=== PATIENT | male | born 1975 | race American Indian/Alaskan Native ===

== ENCOUNTER 2019-08-20 23:14 | Inpatient (IN) | payer OTHER ==
[2019-08-20] MEDS ORDERED: methylPREDNISolone Sod Succinate 125 MG/2 ML INJ IV ONE (23:44)
[2019-08-20] MEDS ORDERED: ALBUTEROL 2.5 MG/3 ML NEBU IH ONE (23:44)
[2019-08-20] MEDS ORDERED: IPRATROPIUM 0.02% NEBU 2.5 ML IH ONE (23:44)
--- NOTE | 2019-08-21 00:20 | Emergency Department Report ---
ED Asthma HPI - General Chief Complaint: Adult Asthma Stated Complaint: ASTHMA Time Seen by Provider: 08/20/19 23:40 Source: patient Mode of arrival: Ambulatory Limitations: No Limitations - History of Present Illness Initial Comments: 43-year-old male with a past medical history asthma and hypertension presents to the hospital complains of wheezing and short of breath for the last 10 days. No improvement with home nebs. Patient has history to intubations to intubations in the past with last intubation in May. Patient to dry cough without fever. Generalized chest tightness reported that is moderate in intensity. No calf tenderness or leg edema. Patient's compliant with his amlodipine 10 mg every morning for hypertension. Patient received albuterol 5 mg prior to arrival with minimal improvement. Not currently on steroids. PMD none, neurologist: None - Related Data Allergies Allergy/AdvReac Type Severity Reaction Status Date / Time shellfish derived Allergy Swelling Verified 08/20/19 23:16 ED Review of Systems ROS: Stated complaint: ASTHMA Other details as noted in HPI Comment: All other systems reviewed and negative ED Past Medical Hx - Past Medical History Previous Medical History?: Yes Hx Hypertension: Yes Hx Asthma: Yes - Surgical History Past Surgical History?: Yes Additional Surgical History: sinus ED Physical Exam - General Limitations: No Limitations - Other Other exam information: General: No acute distress Head: Atraumatic Eyes: normal appearance ENT: Moist mucous membranes Neck: Normal appearance, no midline tenderness Chest: Poor air movement, mild tachypnea CV: Regular rate and rhythm Abdomen: Soft, normal bowel sounds, nontender, nondistended, no rebound or guarding Back: Normal inspection Extremity: Normal inspection infection, full range of motion, no calf tenderness or leg edema Neuro: Alert O x 3, no facial asymmetry, speech clear, no gross motor sensory deficit Psych: Appropriate behavior Skin: Eczema rash to chest ED Course Vital Signs 08/20/19 08/20/19 08/20/19 23:19 23:34 23:45 Temperature 97.7 F Pulse Rate 76 84 Pulse Rate [ Bilateral] Respiratory 18 19 11 L Rate Respiratory Rate [Bilateral ] Blood Pressure 163/101 158/104 O2 Sat by Pulse 97 99 Oximetry 08/20/19 08/21/19 08/21/19 23:59 00:01 00:15 Temperature Pulse Rate 73 84 Pulse Rate [ 73 Bilateral] Respiratory 13 18 Rate Respiratory 15 Rate [Bilateral ] Blood Pressure 158/104 157/91 O2 Sat by Pulse 100 100 Oximetry 08/21/19 08/21/19 08/21/19 00:31 00:45 01:01 Temperature Pulse Rate 87 90 79 Pulse Rate [ Bilateral] Respiratory 18 17 14 Rate Respiratory Rate [Bilateral ] Blood Pressure 157/91 137/101 137/101 O2 Sat by Pulse 100 100 100 Oximetry 08/21/19 08/21/19 08/21/19 01:15 01:30 01:45 Temperature Pulse Rate 83 81 86 Pulse Rate [ Bilateral] Respiratory 15 16 16 Rate Respiratory Rate [Bilateral ] Blood Pressure 129/76 129/76 O2 Sat by Pulse 100 100 100 Oximetry 08/21/19 08/21/19 08/21/19 02:01 02:15 02:31 Temperature Pulse Rate 82 99 H 88 Pulse Rate [ Bilateral] Respiratory 15 15 16 Rate Respiratory Rate [Bilateral ] Blood Pressure 142/77 132/76 132/76 O2 Sat by Pulse 100 100 100 Oximetry 08/21/19 08/21/19 08/21/19 02:45 03:01 03:15 Temperature Pulse Rate 74 70 92 H Pulse Rate [ Bilateral] Respiratory 15 14 15 Rate Respiratory Rate [Bilateral ] Blood Pressure 129/84 129/84 146/91 O2 Sat by Pulse 100 100 100 Oximetry 08/21/19 08/21/19 08/21/19 03:31 04:01 04:31 Temperature Pulse Rate 77 69 107 H Pulse Rate [ Bilateral] Respiratory 15 14 16 Rate Respiratory Rate [Bilateral ] Blood Pressure 146/91 134/83 125/76 O2 Sat by Pulse 100 100 100 Oximetry ED Medical Decision Making - Lab Data Result diagrams: 08/20/19 23:50 08/20/19 23:50 Lab Results 08/20/19 08/20/19 Range/Units 23:50 23:50 WBC 7.8 (4.5-11.0) K/mm3 RBC 4.52 (3.65-5.03) M/mm3 Hgb 13.9 (11.8-15.2) gm/dl Hct 41.0 (35.5-45.6) % MCV 91 (84-94) fl MCH 31 (28-32) pg MCHC 34 (32-34) % RDW 14.5 (13.2-15.2) % Plt Count 336 (140-440) K/mm3 Lymph % (Auto) 44.4 H (13.4-35.0) % [place] % (Auto) 7.7 H (0.0-7.3) % Eos % (Auto) 10.3 H (0.0-4.3) % Baso % (Auto) 0.4 (0.0-1.8) % Lymph # 3.5 (1.2-5.4) K/mm3 [place] # 0.6 (0.0-0.8) K/mm3 Eos # 0.8 H (0.0-0.4) K/mm3 Baso # 0.0 (0.0-0.1) K/mm3 Seg Neutrophils % 37.2 L (40.0-70.0) % Seg Neutrophils # 2.9 (1.8-7.7) K/mm3 Sodium 143 (137-145) mmol/L Potassium 3.1 L (3.6-5.0) mmol/L Chloride 104.3 (98-107) mmol/L Carbon Dioxide 20 L (22-30) mmol/L Anion Gap 22 mmol/L BUN 11 (9-20) mg/dL Creatinine 0.8 (0.8-1.5) mg/dL Estimated GFR > 60 ml/min BUN/Creatinine Ratio 14 % Glucose 99 (75-100) mg/dL Calcium 8.9 (8.4-10.2) mg/dL - EKG Data -: EKG Interpreted by [facility] EKG shows normal: sinus rhythm, ST-T waves (no stemi) Rate: normal (81) - Radiology Data Radiology results: report reviewed CHEST 1 VIEW INDICATION: sob, asthma. COMPARISON: None. FINDINGS: Support devices: None. Heart: Within normal limits. Lungs/Pleura: No acute air space or interstitial disease. Additional findings: None. IMPRESSION: No acute abnormality. - Medical Decision Making Pt presents with status asthmaticus without significant improvement despite nebs, steroids, and magnesium. Potassium provided for mild hypokalemia. Chest x-ray unremarkable. Patient to be admitted to the hospitalist service for evaluation. - Differential Diagnosis asthma, bronchitis, pneumonia, pneumothorax Critical Care Time: No Critical care attestation.: If time is entered above; I have spent that time in minutes in the direct care of this critically ill patient, excluding procedure time. ED Disposition Clinical Impression: Status asthmaticus, Hypokalemia Disposition: OP ADMIT IP TO THIS HOSP Is pt being admited?: Yes Condition: Stable Time of Disposition: 05:06 (Dr Ball/hosp)
[2019-08-21 00:24] LABS: Basophils % (Auto) 0.4 % (0.0-1.8); Eosinophils # (Auto) 0.8 K/mm3 (0.0-0.4); Eosinophils % (Auto) 10.3 % (0.0-4.3); Hemoglobin 13.9 gm/dl (11.8-15.2); Lymphocytes # (Auto) 3.5 K/mm3 (1.2-5.4); Lymphocytes % (Auto) 44.4 % (13.4-35.0); Mean Corpuscular HGB Conc 34 % (32-34); Mean Corpuscular Volume 91 fl (84-94); Monocytes # (Auto) 0.6 K/mm3 (0.0-0.8); Monocytes % (Auto) 7.7 % (0.0-7.3); Platelet Count 336 K/mm3 (140-440); Red Blood Count 4.52 M/mm3 (3.65-5.03); Red Cell Distribution Width 14.5 % (13.2-15.2)
--- NOTE | 2019-08-21 00:27 | XRay Report ---
CHEST 1 VIEW INDICATION: sob, asthma. COMPARISON: None. FINDINGS: Support devices: None. Heart: Within normal limits. Lungs/Pleura: No acute air space or interstitial disease. Additional findings: None. IMPRESSION: No acute abnormality. Signer Name: Terrance Treadwell MD Signed: 08/21/2019 12:23 AM Workstation Name: [id number]
[2019-08-21 00:43] LABS: BUN/Creatinine Ratio 14; Blood Urea Nitrogen 11 mg/dL (9-20); Calcium 8.9 mg/dL (8.4-10.2); Hemolysis Index 9
[2019-08-21] MEDS ORDERED: POTASSIUM CHLORIDE ER 20 MEQ TAB PO ONE (01:29)
[2019-08-21] MEDS ORDERED: ALBUTEROL 2.5 MG/3 ML NEBU IH ONE (03:10)
[2019-08-21] MEDS ORDERED: ONDANSETRON 4 MG/2 ML INJ IV PRN (05:49)
[2019-08-21] MEDS ORDERED: MAGNESIUM HYDROXIDE (MOM) ORAL LIQD UDC PO PRN (05:49)
--- NOTE | 2019-08-21 06:03 | History and Physical Report ---
History of Present Illness Date of examination: 08/21/19 Date of admission: 08/21/19 Chief complaint: Shortness of breath and cough History of present illness: 43-year-old -[place] male with known history of hypertension and asthma presented to the emergency room today complaining of cough and shortness of breath which has been ongoing for about 10 days. Cough has not been productive but he has been having some chest tightness. He denies any fever or chills. He denies any nausea or vomiting. He has used his inhalers at home without any significant improvement and indicates that he has been wheezing at home. He has known history of intubation in the past and last intubation was in May 2019. Upon arrival in the emergency room he was found to be wheezing and has received multiple nebulizer treatments with with some improvement. He indicates he has been compliant with his blood pressure medications. Past History Past Medical History: hypertension, other (Asthma) Past Surgical History: Other (History of previous intubations) Social history: alcohol abuse (Drinks 6 packs of beer per week) Family history: cancer (Brain cancer Sister, breast cancer in mother), hypertension, other (Family history of asthma) Medications and Allergies Allergies Allergy/AdvReac Type Severity Reaction Status Date / Time shellfish derived Allergy Swelling Verified 08/20/19 23:16 Home Medications Medication Instructions Recorded Confirmed Last Taken Type ALBUTEROL Inhaler (OR & NICU) 2 puff IH DAILY 08/21/19 08/21/19 Unknown History [ProAir HFA Inhaler] Budesonide/Formoterol Fumarate 2 puff IH DAILY 08/21/19 08/21/19 Unknown History [Symbicort 160-4.5 Mcg Inhaler] amLODIPine 1 tab PO DAILY 08/21/19 08/21/19 Unknown History Active Meds: Active Medications Acetaminophen (Tylenol) 650 mg PO Q4H PRN PRN Reason: Pain MILD(1-3)/Fever >100.5/MARRERO Albuterol/Ipratropium (Duoneb *Not For Prn Use*) 1 ampul IH Q6HRT DAVID Magnesium Hydroxide (Milk Of Magnesia) 30 ml PO Q4H PRN PRN Reason: Constipation Methylprednisolone Sodium Succinate (Solu-Medrol) 40 mg IV Q8HR DAVID Ondansetron HCl (Zofran) 4 mg IV Q8H PRN PRN Reason: Nausea And Vomiting Sodium Chloride (Sodium Chloride Flush Syringe 10 Ml) 10 ml IV BID DAVID Sodium Chloride (Sodium Chloride Flush Syringe 10 Ml) 10 ml IV PRN PRN PRN Reason: LINE FLUSH Review of Systems Respiratory: cough, shortness of breath Exam - Constitutional Vitals: Temp Pulse Resp BP Pulse Ox 97.7 F 107 H 16 125/76 100 08/20/19 23:19 08/21/19 04:31 08/21/19 04:31 08/21/19 04:31 08/21/19 04:31 General appearance: Present: no acute distress, well-nourished - EENT Eyes: Present: PERRL, EOM intact ENT: hearing intact, clear oral mucosa, dentition normal - Neck Neck: Present: supple, normal ROM - Respiratory Respiratory: bilateral: wheezing - Cardiovascular Rhythm: regular Heart Sounds: Present: S1 & S2 - Extremities Extremities: no ischemia, pulses intact, pulses symmetrical, No edema, Full ROM Peripheral Pulses: within normal limits - Abdominal General gastrointestinal: Present: soft, non-tender, non-distended, normal bowel sounds - Integumentary Integumentary: Present: clear, warm, dry, rash (Seborrheic dermatitis of the forehead and anterior chest wall) - Psychiatric Psychiatric: appropriate mood/affect, intact judgment & insight, cooperative - Neurologic Neurologic: CNII-XII intact, moves all extremities Results - Labs CBC & Chem 7: 08/20/19 23:50 08/20/19 23:50 Labs: Abnormal lab results 08/20/19 08/20/19 Range/Units 23:50 23:50 Lymph % (Auto) 44.4 H (13.4-35.0) % [place] % (Auto) 7.7 H (0.0-7.3) % Eos % (Auto) 10.3 H (0.0-4.3) % Eos # 0.8 H (0.0-0.4) K/mm3 Seg Neutrophils % 37.2 L (40.0-70.0) % Potassium 3.1 L (3.6-5.0) mmol/L Carbon Dioxide 20 L (22-30) mmol/L Assessment and Plan - Patient Problems (1) Status asthmaticus Current Visit: Yes Status: Acute Plan to address problem: He has been placed on nebulizing treatments and also on IV steroids. We will monitor oxygen saturation and keep O2 saturation greater or equal to 92%. (2) Hypokalemia Current Visit: Yes Status: Acute Plan to address problem: Potassium will be repleted and will monitor chemistry. (3) Hypertension Current Visit: Yes Status: Acute Plan to address problem: We will continue routine home medication and monitor vital signs closely (4) DVT prophylaxis Current Visit: Yes Status: Acute Plan to address problem: Patient is placed on subcutaneous heparin. (5) Full code status Current Visit: Yes Status: Acute
[2019-08-21] MEDS: methylPREDNISolone Sod Succinate 40 MG/1 ML INJ IV SCH ×3 (06:20→22:38)
[2019-08-21] MEDS: IPRATROPIUM/ALBUTEROL SULFATE 3 ML AMPUL.NEB IH SCH ×3 (09:30→19:23)
[2019-08-21] MEDS: HEPARIN 5,000 UNIT/1 ML VIAL SUB-Q SCH ×2 (13:21→22:38)
[2019-08-21 13:33] LABS: BUN/Creatinine Ratio 15; Blood Urea Nitrogen 12 mg/dL (9-20); Calcium 9.8 mg/dL (8.4-10.2); Hemolysis Index 4
--- NOTE | 2019-08-21 13:56 | Event Note ---
Date: 08/21/19 Patient seen and examined admitted with acute asthma exacerbation, cont current mx and plan possible d/c in the am if clinically improves
[2019-08-21] MEDS ORDERED: NON-FORMULARY EACH (Budesonide/Formoterol Fumarate [Symbicort 160-4.5 Mcg Inhaler] 2 PUFF) IH SCH (18:30)
[2019-08-21] MEDS: amLODIPine 10 MG TAB PO SCH (18:36)
[2019-08-21] MEDS: ARFORMOTEROL 15 MCG/2 ML NEBU IH SCH (19:23)
[2019-08-21] MEDS: BUDESONIDE 0.5 MG/2 ML NEBU IH SCH (19:23)
[2019-08-21] MEDS ORDERED: ALBUTEROL 2.5 MG/3 ML NEBU IH PRN (19:30)
[2019-08-22] MEDS ORDERED: hydrALAZINE 20 MG/1 ML INJ IV PRN (00:06)
[2019-08-22] MEDS: IPRATROPIUM/ALBUTEROL SULFATE 3 ML AMPUL.NEB IH SCH ×4 (01:53→20:08)
[2019-08-22] MEDS: methylPREDNISolone Sod Succinate 40 MG/1 ML INJ IV SCH ×3 (06:34→21:12)
[2019-08-22] MEDS: HEPARIN 5,000 UNIT/1 ML VIAL SUB-Q SCH ×3 (06:34→21:12)
[2019-08-22] MEDS: ACETAMINOPHEN 325 MG TAB PO PRN ×3 (06:42→22:31)
[2019-08-22] MEDS: ARFORMOTEROL 15 MCG/2 ML NEBU IH SCH ×2 (07:23→20:08)
[2019-08-22] MEDS: BUDESONIDE 0.5 MG/2 ML NEBU IH SCH ×2 (07:23→20:08)
[2019-08-22] MEDS: amLODIPine 10 MG TAB PO SCH (09:05)
[2019-08-22 09:23] LABS: Basophils % (Auto) 0.1 % (0.0-1.8); Hematocrit 40.7 % (35.5-45.6); Hemoglobin 13.4 gm/dl (11.8-15.2); Lymphocytes # (Auto) 0.5 K/mm3 (1.2-5.4); Lymphocytes % (Auto) 6.5 % (13.4-35.0); Mean Corpuscular HGB Conc 33 % (32-34); Mean Corpuscular Volume 90 fl (84-94); Monocytes # (Auto) 0.4 K/mm3 (0.0-0.8); Monocytes % (Auto) 5.3 % (0.0-7.3); Platelet Count 313 K/mm3 (140-440); Red Blood Count 4.51 M/mm3 (3.65-5.03); Red Cell Distribution Width 14.3 % (13.2-15.2)
[2019-08-22 09:34] LABS: BUN/Creatinine Ratio 17; Blood Urea Nitrogen 10 mg/dL (9-20); Calcium 9.4 mg/dL (8.4-10.2); Hemolysis Index 3
[2019-08-22 09:38] LABS: INR 1.19 (0.87-1.13)
[2019-08-22] MEDS ORDERED: FLU VACC QUAD 2019-20 (3 YR UP)/PF 60 MCG/0.5 ML SYRINGE IM ONE (12:00)
--- NOTE | 2019-08-23 01:07 | Progress Note ---
Assessment and Plan / Status asthmaticus He has been placed on nebulizing treatments and also on IV steroids. We will monitor oxygen saturation and keep O2 saturation greater or equal to 92%. / Hypokalemia repleted and will monitor chemistry. / Hypertension continue routine home medication and monitor vital signs closely /DVT prophylaxis Patient is placed on subcutaneous heparin. /Full code status Disposition: likely tomorrow Subjective Date of service: 08/22/19 Interval history: Patient seen and examined Still c/o SOB, denies chest pain Objective - Constitutional Vitals: Vital Signs - 12hr 08/22/19 08/22/19 08/22/19 17:20 20:11 20:13 Temperature 98.0 F Pulse Rate 78 Pulse Rate [ 90 Anterior Bilateral Throughout] Respiratory 19 Rate Respiratory 20 Rate [Anterior Bilateral Throughout] Blood Pressure 148/95 O2 Sat by Pulse 99 99 Oximetry 08/22/19 08/22/19 08/22/19 21:22 22:31 22:46 Temperature 98.4 F 98.1 F Pulse Rate 90 68 Pulse Rate [ Anterior Bilateral Throughout] Respiratory 16 20 18 Rate Respiratory Rate [Anterior Bilateral Throughout] Blood Pressure 141/91 138/87 O2 Sat by Pulse 100 98 Oximetry 08/22/19 23:31 Temperature Pulse Rate Pulse Rate [ Anterior Bilateral Throughout] Respiratory 20 Rate Respiratory Rate [Anterior Bilateral Throughout] Blood Pressure O2 Sat by Pulse Oximetry General appearance: Present: mild distress - EENT Eyes: PERRL, EOM intact ENT: hearing intact, clear oral mucosa Ears: bilateral: normal - Neck Neck: supple, normal ROM - Respiratory Respiratory effort: normal Respiratory: bilateral: wheezing - Cardiovascular Rhythm: regular Heart Sounds: Present: S1 & S2. Absent: gallop, rub Extremities: pulses intact, No edema, normal color, Full ROM - Gastrointestinal General gastrointestinal: Present: soft, non-tender, non-distended, normal bowel sounds - Integumentary Integumentary: clear, warm, dry - Musculoskeletal Musculoskeletal: 1, strength equal bilaterally - Neurologic Neurologic: moves all extremities - Psychiatric Psychiatric: memory intact, appropriate mood/affect, intact judgment & insight - Labs CBC & Chem 7: 08/22/19 08:20 08/22/19 08:20 Labs: Abnormal lab results 08/22/19 08/22/19 08/22/19 Range/Units 08:20 08:20 08:20 Lymph % (Auto) 6.5 L (13.4-35.0) % Lymph # 0.5 L (1.2-5.4) K/mm3 Seg Neutrophils % 88.1 H (40.0-70.0) % PT 15.0 H (12.2-14.9) Sec. INR 1.19 H (0.87-1.13) Sodium 136 L (137-145) mmol/L Creatinine 0.6 L (0.8-1.5) mg/dL Glucose 125 H (75-100) mg/dL
[2019-08-23] MEDS: IPRATROPIUM/ALBUTEROL SULFATE 3 ML AMPUL.NEB IH SCH ×2 (02:15→07:44)
[2019-08-23] MEDS: ACETAMINOPHEN 325 MG TAB PO PRN ×2 (02:32→06:22)
[2019-08-23] MEDS: methylPREDNISolone Sod Succinate 40 MG/1 ML INJ IV SCH (06:09)
[2019-08-23] MEDS: HEPARIN 5,000 UNIT/1 ML VIAL SUB-Q SCH (06:09)
[2019-08-23] MEDS ORDERED: oxyCODONE /ACETAMINOPHEN 5-325MG TAB PO PRN (06:12)
[2019-08-23] MEDS: ARFORMOTEROL 15 MCG/2 ML NEBU IH SCH (07:45)
[2019-08-23] MEDS: BUDESONIDE 0.5 MG/2 ML NEBU IH SCH (07:45)
[2019-08-23] MEDS: amLODIPine 10 MG TAB PO SCH (09:09)
--- NOTE | 2019-08-23 12:03 | Discharge Summary ---
Providers - Providers Date of Admission: 08/21/19 05:14 Date of discharge: 08/23/19 Attending physician: BECKY SUTTON Primary care physician: INTEGR[employer]ELOPER Hospitalization Reason for admission: Status asthmaticus Condition: Stable Hospital course: Final discharge diagnosis: Status asthmaticus Hypokalemia Uncontrolled Hypertension Medication non-compliance Hospital course: Pt was admitted and placed on IV steroids, duonebs and 02 supplementations. He also received K supplements for hypokalemia with resolution. In addition, he was placed on anti-hypertensives for BP control. Subsequently, he improved clinically and was then deemed stable for d/c with clinic f/u. Disposition: DC-01 TO HOME OR SELFCARE Time spent for discharge: 38 minutes Core Measure Documentation - Palliative Care Palliative Care/ Comfort Measures: Not Applicable - Core Measures Any of the following diagnoses?: none Exam - Constitutional Vitals: Temp Pulse Resp BP Pulse Ox 98.1 F 84 20 129/86 98 08/23/19 05:54 08/23/19 07:45 08/23/19 07:45 08/23/19 05:54 08/23/19 07:47 General appearance: Present: no acute distress, well-nourished - EENT Eyes: Present: PERRL, EOM intact ENT: hearing intact, clear oral mucosa - Neck Neck: Present: supple, normal ROM - Respiratory Respiratory effort: normal Respiratory: bilateral: CTA - Cardiovascular Heart Sounds: Present: S1 & S2. Absent: rub, click - Extremities Extremities: pulses symmetrical, No edema Peripheral Pulses: within normal limits - Abdominal General gastrointestinal: Present: soft, non-tender, non-distended, normal bowel sounds - Integumentary Integumentary: Present: clear, warm, dry - Musculoskeletal Musculoskeletal: gait normal, strength equal bilaterally - Psychiatric Psychiatric: appropriate mood/affect, intact judgment & insight - Neurologic Neurologic: CNII-XII intact, moves all extremities Plan Follow up with: PRIMARY CARE, [Primary Care Provider] - 3-5 Days Forms: Work/School Release Form Prescriptions: amLODIPine 10 mg PO DAILY 30 Days #30 tab Prednisone [predniSONE (Trace) ER TAB] 5 mg PO QDAY #30 tablet. ALBUTEROL Inhaler (OR & NICU) [ProAir HFA Inhaler] 2 puff IH Q4H PRN #8.5 gram PRN Reason: Shortness Of Breath Budesonide/Formoterol Fumarate [Symbicort 160-4.5 Mcg Inhaler] 2 puff IH DAILY #1 hfa.aer.ad
[2019-08-23 12:55] VITALS: BP 144/82
== END 2019-08-23 13:24 | disposition home or self-care (01) | DRG 203 ==
LOC: EDBD → ED 23:14 → 3A 08-21 05:14
PROVIDERS: ADMIT Internal Medicine Geriatric Medicine; ATTEND Internal Medicine
DX: J45.902 Unspecified asthma with status asthmaticus (principal); E87.6 Hypokalemia; I10 Essential (primary) hypertension; F10.10 Alcohol abuse, uncomplicated; Y90.9 Presence of alcohol in blood, level not specified; Z91.013 Allergy to seafood; Z82.49 Family history of ischemic heart disease and other diseases of the circulatory system; Z80.8 Family history of malignant neoplasm of other organs or systems; Z79.51 Long term (current) use of inhaled steroids
CPT/HCPCS: 36415; 71045; 80048; 85025; 85610; 85730; 90686; 93005; 93010; 94640; 94644; 94760; 96374; G0378; J1644; J2920; J2930

== ENCOUNTER 2019-09-29 21:33 | Emergency (ER) | payer SELFPAY ==
--- NOTE | 2019-09-29 22:21 | Emergency Department Report ---
HPI - General Time Seen by Provider: 09/29/19 21:48 - HPI HPI: 44-year-old -[place] male presents to the emergency department with a complaint of right shoulder pain since last night. He was playing basketball and fell with an outstretched arm. He feels like his right shoulder dislocated and then popped back into place. Since that time the patient has been having increased pain at the right shoulder that radiates down the arm and he has decreased range of motion. He has trouble lifting his arm. He has not taken anything for her symptoms prior to presentation. He is right-hand dominant. The patient says that he had a visit to the emergency department about 3 months ago in which he had a right shoulder dislocation and fracture. He says he was supposed to have surgery but never did. ED Past Medical Hx - Past Medical History Previous Medical History?: Yes Hx Hypertension: Yes Hx Asthma: Yes Additional medical history: gastric ulcers - Surgical History Past Surgical History?: Yes Additional Surgical History: sinus, Jaw - Social History Smoking Status: Never Smoker Substance Use Type: Alcohol - Medications Home Medications: Home Medications Medication Instructions Recorded Confirmed Last Taken Type Budesonide/Formoterol Fumarate 2 puff IH DAILY #1 hfa.aer.ad 08/23/19 Unknown Rx [Symbicort 160-4.5 Mcg Inhaler] Prednisone [predniSONE (Trace) ER 5 mg PO QDAY #30 tablet. 08/23/19 Unknown Rx TAB] amLODIPine 10 mg PO DAILY 30 Days #30 tab 08/23/19 Unknown Rx ALBUTEROL Inhaler (OR & NICU) 2 puff IH Q4H PRN #8.5 gram 09/30/19 Unknown Rx [ProAir HFA Inhaler] HYDROcodone/APAP 5-325 [[place] 1 each PO Q6HR PRN #12 tablet 09/30/19 Unknown Rx 5/325] predniSONE [Deltasone] 20 mg PO BID #8 tab 09/30/19 Unknown Rx ED Review of Systems ROS: Stated complaint: SHOULDER PAIN Other details as noted in HPI Comment: All other systems reviewed and negative Constitutional: denies: chills, fever Musculoskeletal: arthralgia, myalgia. denies: joint swelling Neurological: denies: numbness, paresthesias Physical Exam - Physical Exam Vital Signs: Vital Signs 09/29/19 09/29/19 09/29/19 21:57 22:01 22:16 Pulse Rate 84 Respiratory 13 18 Rate Blood Pressure 174/118 O2 Sat by Pulse 97 97 Oximetry Physical Exam: GENERAL: The patient is well-developed well-nourished. HEENT: Normocephalic. Atraumatic. Patient has moist mucous membranes. EYES: Extraocular motions are intact. NECK: Supple. Trachea is midline CHEST/LUNGS: Mild to moderate wheezing throughout the chest. There is some tachypnea but no accessory muscle use. There is no respiratory distress noted. HEART/CARDIOVASCULAR: Regular. There is no tachycardia. ABDOMEN: Abdomen is soft, nontender. Patient has normal bowel sounds. There is no abdominal distention. SKIN: Skin is warm and dry. NEURO: The patient is awake, alert, and oriented. The patient is cooperative. The patient has no focal neurologic deficits. Normal speech. MUSCULOSKELETAL: There is tenderness to palpation to the right shoulder but no obvious deformity. Decreased range of motion of the right shoulder secondary to pain. Radial pulse +2 over 4 and capillary refill less than 2 seconds to the affected right upper extremity. ED Course Vital Signs 09/29/19 09/29/19 09/29/19 21:57 22:01 22:16 Pulse Rate 84 Respiratory 13 18 Rate Blood Pressure 174/118 O2 Sat by Pulse 97 97 Oximetry - Reevaluation(s) Reevaluation #1: 09/29/19 22:31 As I went back into the room to discuss the shoulder x-ray results, the patient appears to be having an asthma exacerbation. He has some tachypnea and wheezing. He does have a history of asthma and says that he has been using his albuterol inhaler excessively without any relief. He says that he has been to multiple hospitals over the past few weeks regarding his asthma. An IV will be placed. Patient will receive Solu-Medrol, magnesium, breathing treatments. ED Medical Decision Making - Lab Data Result diagrams: 09/29/19 23:45 09/29/19 23:45 - Radiology Data Radiology results: image reviewed interpreted by me: Chest x-ray does not show any pneumonia, pneumothorax, focal consolidation, pleural effusions, or any other acute process. X-ray of the right shoulder does not show any fracture, dislocation, or any acute process. - Medical Decision Making This patient originally presents with right shoulder pain with concern for possible fracture or dislocation. He definitely feels that it was dislocated last night but then reduced almost immediately afterwards. On examination he has tenderness to palpation to the right shoulder and decreased range of motion secondary to pain. He is neurovascularly intact. X-ray does not show any fracture, dislocation, or any other acute process. Patient began having what appears to be an asthma exacerbation. He had some mild to moderate wheezing but no accessory muscle use, conversational dyspnea, or signs of respiratory distress. He was given some Solu-Medrol, magnesium and a breathing treatment. Chest x-ray did not show any pleural effusions, pneu monia, or any other acute process. Upon reevaluation the patient is feeling greatly improved. Vital signs have been stable throughout his ED course except for he did have some hypertension. He was given a dose of hydralazine and his blood pressure came down to a more reasonable level. The patient be discharged home with a shoulder immobilizer, referrals for orthopedists, a 4 day course of steroids, refill of his albuterol inhaler, and pain medication. The patient will return to the ER with any worsening of his symptoms or any acute distress. - Differential Diagnosis shoulder fracture, shoulder dislocation, rotator cuff tear, asthma, pneumon Critical Care Time: No Critical care attestation.: If time is entered above; I have spent that time in minutes in the direct care of this critically ill patient, excluding procedure time. ED Disposition Clinical Impression: Asthma exacerbation Qualifiers: Asthma severity: unspecified severity Asthma persistence: unspecified Qualified Code(s): J45.901 - Unspecified asthma with (acute) exacerbation Right shoulder pain Qualifiers: Chronicity: acute Qualified Code(s): M25.511 - Pain in right shoulder Disposition: DC-01 TO HOME OR SELFCARE Is pt being admited?: No Condition: Stable Instructions: Asthma (ED), Arthralgia (ED) Additional Instructions: Please follow-up with your primary care physician regarding your asthma exacerbation. I have given you a referral for 2 local orthopedic groups, Dr. Bashir and Dave, regarding your right shoulder pain and injury. Return to the emergency Department with any worsening of your symptoms or any acute distress. The medication that you have been prescribed for pain can be sedating. Theref ore this medication cannot be taken prior to driving, working, being responsible for children, and cannot be mixed with alcohol of any quantity. Prescriptions: predniSONE [Deltasone] 20 mg PO BID #8 tab HYDROcodone/APAP 5-325 [[place] 5/325] 1 each PO Q6HR PRN #12 tablet PRN Reason: Pain ALBUTEROL Inhaler (OR & NICU) [ProAir HFA Inhaler] 2 puff IH Q4H PRN #8.5 gram PRN Reason: Shortness Of Breath Referrals: PRIMARY CAREMD [Primary Care Provider] - 2-3 Days MONIQUE BASHIR MD [Staff Physician] - 2-3 Days [facility] [Provider Group] - 2-3 Days Forms: Work/School Release Form(ED) Time of Disposition: 01:28
--- NOTE | 2019-09-29 22:25 | XRay Report ---
RIGHT SHOULDER 3 VIEWS INDICATION / CLINICAL INFORMATION: right shoulder pain COMPARISON: 12/07/2018 FINDINGS: BONES / JOINT(S): No acute fracture or subluxation. There is mild degenerative change of the glenohum eral joint. Small ossifications are noted adjacent to the humeral head which are consistent with well -corticated fracture fragments related to previous fracture/dislocation from 12/07/2018. SOFT TISSUES: No significant abnormality. ADDITIONAL FINDINGS: None. Signer Name: Efren Brewster MD Signed: 09/29/2019 10:20 PM Workstation Name: [id number]
[2019-09-29] MEDS ORDERED: ALBUTEROL 2.5 MG/3 ML NEBU IH ONE (22:30)
[2019-09-29] MEDS ORDERED: methylPREDNISolone Sod Succinate 125 MG/2 ML INJ IV ONE (22:30)
[2019-09-29] MEDS ORDERED: MAGNESIUM SULFATE 2 GM/50 ML BAG IV ONE (22:30)
[2019-09-29] MEDS ORDERED: SODIUM CHLORIDE 0.9% 1000 ML 1,000 ML IV ONE (22:30)
[2019-09-29] MEDS ORDERED: IPRATROPIUM 0.02% NEBU 2.5 ML IH ONE (22:31)
[2019-09-29] MEDS ORDERED: MORPHINE 4 MG/1 ML INJ IV ONE (23:44)
[2019-09-30 00:12] LABS: Basophils % (Auto) 0.7 % (0.0-1.8); Eosinophils # (Auto) 0.8 K/mm3 (0.0-0.4); Eosinophils % (Auto) 13.2 % (0.0-4.3); Hematocrit 37.9 % (35.5-45.6); Lymphocytes % (Auto) 31.9 % (13.4-35.0); Mean Corpuscular HGB Conc 34 % (32-34); Mean Corpuscular Volume 89 fl (84-94); Monocytes # (Auto) 0.4 K/mm3 (0.0-0.8); Platelet Count 284 K/mm3 (140-440); Red Blood Count 4.27 M/mm3 (3.65-5.03); Red Cell Distribution Width 14.5 % (13.2-15.2)
--- NOTE | 2019-09-30 00:18 | XRay Report ---
CHEST 1 VIEW INDICATION: SOB. COMPARISON: FINDINGS: SUPPORT DEVICES: None. HEART / MEDIASTINUM: No significant abnormality. LUNGS / PLEURA: No significant pulmonary or pleural abnormality. No pneumothorax. ADDITIONAL FINDINGS: IMPRESSION: 1. No acute findings. Signer Name: Aly Dalton MD Signed: 09/30/2019 12:14 AM Workstation Name: [id number]
[2019-09-30 00:50] LABS: BUN/Creatinine Ratio 13; Blood Urea Nitrogen 10 mg/dL (9-20); Calcium 8.4 mg/dL (8.4-10.2); Hemolysis Index 1
[2019-09-30] MEDS ORDERED: POTASSIUM CHLORIDE ER 20 MEQ TAB PO ONE (00:53)
[2019-09-30] MEDS ORDERED: hydrALAZINE 20 MG/1 ML INJ IV ONE (01:28)
[2019-09-30 02:39] VITALS: BP 173/91
== END 2019-09-30 02:37 | disposition home or self-care (01) ==
LOC: EDBD → ED 21:33
DX: M25.511 Pain in right shoulder (principal); J45.901 Unspecified asthma with (acute) exacerbation; I10 Essential (primary) hypertension; Z79.899 Other long term (current) drug therapy; Z91.013 Allergy to seafood; Z91.018 Allergy to other foods
CPT/HCPCS: 36415; 71045; 73030; 80048; 85025; 96365; 96375; 99284; J0360; J2270; J2930; J3475; J7030

== ENCOUNTER 2019-11-07 11:34 | Emergency (ER) | payer SELFPAY ==
[2019-11-07] MEDS ORDERED: predniSONE 20 MG TAB PO ONE (12:16)
[2019-11-07] MEDS ORDERED: IPRATROPIUM 0.02% NEBU 2.5 ML IH ONE (12:16)
[2019-11-07] MEDS ORDERED: ALBUTEROL 2.5 MG/3 ML NEBU IH ONE (12:16)
[2019-11-07] MEDS ORDERED: MAGNESIUM SULFATE 2 GM/50 ML BAG IV ONE (12:46)
[2019-11-07] MEDS ORDERED: IBUPROFEN 600 MG TAB PO ONE (12:46)
[2019-11-07] MEDS ORDERED: SODIUM CHLORIDE 0.9% 1000 ML 1,000 ML IV ONE (12:46)
[2019-11-07] MEDS ORDERED: ACETAMINOPHEN 325 MG TAB PO ONE (12:46)
[2019-11-07] MEDS ORDERED: EPINEPHrine/PF (1:1,000) 1 MG/1 ML INJ SUB-Q ONE (12:46)
--- NOTE | 2019-11-07 12:48 | Emergency Department Report ---
ED Asthma HPI - General Chief Complaint: Dyspnea/Respdistress Stated Complaint: ASTHMA ATTACK Time Seen by Provider: 11/07/19 12:14 Source: patient, EMS (EMS documentation not available at this time.), RN notes reviewed, old records reviewed Mode of arrival: Ambulatory Limitations: No Limitations - History of Present Illness Initial Comments: Patient is a pleasant 44-year-old gentleman, history of asthma, has been admitted in the past, intubated at least once in the past, presenting with his typical constellation of asthma symptoms, including chest wall tightness, cough, wheezing, shortness of breath. He denies DVT and pulmonary embolism risk factors. Symptoms present for the past 2-3 days. In the emergency room, treated with albuterol, Atrovent, steroids, magnesium, subcutaneous epinephrine, all of which dramatically improved his symptoms, and he now endorses readiness for discharge. MD Complaint: "asthma attack", shortness of breath, wheezing -: Gradual Asthma History: history of prior ED visit, previously intubated Context: recent URI, ran out of meds Associated Symptoms: dry cough - Related Data Previous Rx's Medication Instructions Recorded Last Taken Type Budesonide/Formoterol Fumarate 2 puff IH DAILY #1 hfa.aer.ad 08/23/19 Unknown Rx [Symbicort 160-4.5 Mcg Inhaler] Prednisone [predniSONE (Trace) ER 5 mg PO QDAY #30 tablet.dr 08/23/19 Unknown Rx TAB] amLODIPine 10 mg PO DAILY 30 Days #30 tab 08/23/19 Unknown Rx Albuterol INH(or & Nicu Only) 2 puff IH Q4H PRN #8.5 gram 09/30/19 Unknown Rx [ProAir HFA Inhaler] predniSONE [Deltasone] 20 mg PO BID #8 tab 09/30/19 Unknown Rx Albuterol Sulfate [Albuterol 0.63% 0.63 mg IH Q4HR PRN #2 ml 11/07/19 Unknown Rx NEBS] Albuterol Sulfate [Proair 90 mcg IH Q4HR PRN #2 aer.pow.ba 11/07/19 Unknown Rx Respiclick] Benzonatate [Tessalon Perles] 100 mg PO Q8HR PRN #30 capsule 11/07/19 Unknown Rx EPINEPHrine [Epipen 2-Juan Jose] 0.3 mg IM DAILY PRN #2 ml 11/07/19 Unknown Rx Ipratropium (Nf) [Atrovent] 2 puff IH Q6HR PRN #1 inha 11/07/19 Unknown Rx Ipratropium [Atrovent NEB] 0.5 mg IH Q4HR #2 ml 11/07/19 Unknown Rx predniSONE [Deltasone] 40 mg PO QDAY #8 tab 11/07/19 Unknown Rx Allergies Allergy/AdvReac Type Severity Reaction Status Date / Time shellfish derived Allergy Swelling Verified 08/20/19 23:16 strawberry AdvReac Swelling Verified 08/22/19 13:10 ED Review of Systems ROS: Stated complaint: ASTHMA ATTACK Other details as noted in HPI Constitutional: denies: fever Eyes: denies: eye discharge ENT: congestion Respiratory: shortness of breath, wheezing Cardiovascular: denies: syncope Gastrointestinal: denies: vomiting Genitourinary: denies: dysuria Skin: denies: lesions Neurological: denies: weakness Hematological/Lymphatic: denies: easy bleeding ED Past Medical Hx - Past Medical History Previous Medical History?: Yes Hx Hypertension: Yes Hx Asthma: Yes Additional medical history: gastric ulcers - Surgical History Past Surgical History?: Yes Additional Surgical History: sinus, Jaw - Social History Smoking Status: Never Smoker Substance Use Type: Alcohol - Medications Home Medications: Home Medications Medication Instructions Recorded Confirmed Last Taken Type Budesonide/Formoterol Fumarate 2 puff IH DAILY #1 hfa.aer.ad 08/23/19 Unknown Rx [Symbicort 160-4.5 Mcg Inhaler] Prednisone [predniSONE (Trace) ER 5 mg PO QDAY #30 tablet. 08/23/19 Unknown Rx TAB] amLODIPine 10 mg PO DAILY 30 Days #30 tab 08/23/19 Unknown Rx Albuterol INH(or & Nicu Only) 2 puff IH Q4H PRN #8.5 gram 09/30/19 Unknown Rx [ProAir HFA Inhaler] predniSONE [Deltasone] 20 mg PO BID #8 tab 09/30/19 Unknown Rx Albuterol Sulfate [Albuterol 0.63% 0.63 mg IH Q4HR PRN #2 ml 11/07/19 Unknown Rx NEBS] Albuterol Sulfate [Proair 90 mcg IH Q4HR PRN #2 aer.pow.ba 02/03/20 Unknown Rx Respiclick] Benzonatate [Tessalon Perles] 100 mg PO Q8HR PRN #30 capsule 11/07/19 Unknown Rx EPINEPHrine [Epipen 2-Juan Jose] 0.3 mg IM DAILY PRN #2 ml 11/07/19 Unknown Rx Ipratropium (Nf) [Atrovent] 2 puff IH Q6HR PRN #1 inha 11/07/19 Unknown Rx Ipratropium [Atrovent NEB] 0.5 mg IH Q4HR #2 ml 11/07/19 Unknown Rx predniSONE [Deltasone] 40 mg PO QDAY #8 tab 11/07/19 Unknown Rx ED Physical Exam - General Limitations: No Limitations General appearance: alert, in no apparent distress - Head Head exam: Present: atraumatic, normocephalic - Eye Eye exam: Present: normal appearance, EOMI. Absent: nystagmus - ENT ENT exam: Present: normal exam, normal orophraynx, mucous membranes moist, normal external ear exam - Neck Neck exam: Present: normal inspection, full ROM. Absent: tenderness, meningismus - Respiratory Respiratory exam: Present: respiratory distress, wheezes, rhonchi, chest wall tenderness - Cardiovascular Cardiovascular Exam: Present: regular rate, normal rhythm, normal heart sounds. Absent: bradycardia, tachycardia, irregular rhythm, systolic murmur, diastolic murmur, rubs, gallop - GI/Abdominal GI/Abdominal exam: Present: soft. Absent: distended, tenderness, guarding, rebound, rigid, pulsatile mass - Rectal Rectal exam: Present: deferred - Extremities Exam Extremities exam: Present: normal inspection, full ROM, other (2+ pulses noted in the bilateral upper and lower extremities. There is no long bony tenderness. The pelvis is stable. The muscular compartments are soft. There is no palpable cord. There is no redness, pus or streaking.). Absent: pedal edema, calf tenderness - Back Exam Back exam: Present: normal inspection, full ROM. Absent: tenderness, CVA tenderness (R), CVA tenderness (L), paraspinal tenderness, vertebral tenderness - Neurological Exam Neurological exam: Present: alert, normal gait, other (there is no facial droop. Tongue is midline. Extraocular movements are intact bilaterally. Walking with a steady gait. Speaking in full sentences. Normal appropriate thought content. 5 out of 5 strength in 4 extremities. Sensation is intact to light touch in 4 extremities.). Absent: motor sensory deficit - Psychiatric Psychiatric exam: Present: normal affect, normal mood - Skin Skin exam: Present: warm, dry, intact, normal color. Absent: rash ED Course Vital Signs 11/07/19 11/07/19 12:13 12:40 Temperature 98.1 F Pulse Rate 94 H Pulse Rate [ 80 Right Lower Lobe] Respiratory 18 Rate Respiratory 18 Rate [Right Lower Lobe] Blood Pressure 159/110 [Left] O2 Sat by Pulse 96 Oximetry ED Medical Decision Making - Lab Data Vital Signs 11/07/19 11/07/19 12:13 12:40 Temperature 98.1 F Pulse Rate 94 H Pulse Rate [ 80 Right Lower Lobe] Respiratory 18 Rate Respiratory 18 Rate [Right Lower Lobe] Blood Pressure 159/110 [Left] O2 Sat by Pulse 96 Oximetry - EKG Data -: EKG Interpreted by Me EKG shows normal: sinus rhythm Rate: normal - EKG Data 11/07/19 13:59 EKG today shows a sinus rhythm, 89 bpm, there is a leftward axis deviation, there is high left ventricular voltages, there is motion artifact. There is no ST elevation myocardial infarction. QTC 460 ms. EKG appears to be grossly unchanged from prior EKG, with the exception of borderline left axis deviation. Comparison made to prior EKG from 08/21/2019 - Radiology Data Radiology results: image reviewed interpreted by me: X-ray the chest, interpreted by me, no acute disease - Medical Decision Making Differential diagnosis, including not limited to: Asthma, bronchitis, costochondritis Assessment and plan: 44-year-old gentleman with reproducible chest wall pain, cough, wheezing, history of asthma, denies DVT, pulmonary embolism risk factors, low risk by well's criteria, perc negative, with probable simple asthma exacerbation. Treated appropriately with albuterol, Atrovent, steroids, magnesium, suffocates epinephrine. Wheezing resolved. Work of breathing improved. Reassessed multiple times on a crown pouncer, patient in no acute distress. Critical Care Time: Yes Critical care time in (mins) excluding proc time.: 35 Critical care attestation.: If time is entered above; I have spent that time in minutes in the direct care of this critically ill patient, excluding procedure time. ED Disposition Clinical Impression: Asthma attack Qualifiers: Asthma severity: moderate Asthma persistence: unspecified Qualified Code(s): J45.901 - Unspecified asthma with (acute) exacerbation Disposition: DC-01 TO HOME OR SELFCARE Is pt being admited?: No Does the pt Need Aspirin: No Condition: Stable Instructions: Asthma (ED) Additional Instructions: Take medications as needed and directed. Avoid consumption of tobacco, alcohol, and smoke products. Take the medications otherwise as prescribed. Drink plenty of fluids, and please follow up with a primary care doctor in 2-3 weeks. Please return to emergency room [facility] with new, worsening or different symptoms, or symptoms not present on the initial emergency room evaluation. Referrals: [facility] [Provider Group] - 7-10 days [facility] [Provider Group] - 7-10 days
--- NOTE | 2019-11-07 14:40 | XRay Report ---
CHEST 1 VIEW 11/07/2019 1:18 PM INDICATION / CLINICAL INFORMATION: Shortness of breath. Wheezing. Cough. Chest wall pain. COMPARISON: One view of the chest from 09/29/2019. FINDINGS: SUPPORT DEVICES: None. HEART / MEDIASTINUM: No significant abnormality. LUNGS / PLEURA: No significant pulmonary or pleural abnormality. No pneumothorax. ADDITIONAL FINDINGS: No significant additional findings. IMPRESSION: No acute abnormality of the chest. Signer Name: Willie Rosenbaum MD Signed: 11/07/2019 2:36 PM Workstation Name: [id number]
[2019-11-07 16:58] VITALS: BP 78/40
== END 2019-11-07 13:58 | disposition home or self-care (01) ==
LOC: ED 11:34
DX: J45.901 Unspecified asthma with (acute) exacerbation (principal); I10 Essential (primary) hypertension; Z98.890 Other specified postprocedural states; Z91.013 Allergy to seafood; Z91.018 Allergy to other foods
CPT/HCPCS: 71045; 93005; 93010; 94640; 96365; 96372; 99284; J0171; J3475; J7030; J7512; 94644